=== PATIENT | female | born 1960 | race Caucasian/White ===

== ENCOUNTER 2018-03-06 07:08 | Emergency (ER) | payer BC ==
--- NOTE | 2018-03-06 07:20 | UC ---
Laceration HPI - HPI Summary HPI Summary: cut her right leg as she was shaving her leg this morning 2 hrs ago small cut to one of her varicose veins , cannot stop the bleeding, has been applying pressure for the past 1 hrs no pain , - History Of Current Complaint Stated Complaint: RIGHT LEG LACERATION Time Seen by Provider: 03/06/18 07:16 Hx Obtained From: Patient Laceration Location: Knee - back of the right leg just below the knee Mechanism Of Injury: Sharp Trauma - cut herself shaving Severity: Moderate Aggravating Factors: Nothing - Allergies/Home Medications Allergies/Adverse Reactions: Allergies Allergy/AdvReac Type Severity Reaction Status Date / Time gabapentin Allergy Itching Verified 03/06/18 07:16 Home Medications: Home Medications Lisinopril TAB* [Prinivil TAB*] 5 mg PO DAILY 03/06/18 [History Confirmed ] PMH/Surg Hx/FS Hx/Imm Hx - Additional Past Medical History Additional PMH: skin cancer - Surgical History Surgical History: Yes Surgery Procedure, Year, and Place: 2 Left knee Arthroscopies- + , Anterior Cervical Fusion-, Posterior Cervical Fusion w/plate c5-C6 , Lasik-, Cholecystectomy 12/24, Hysterectomy/Rt Oopharectomy12/27, Excision Sebaceous Cyst 07/29, Right knee Arthroscopy 04/29, Right TKA-total knee Arthroplasty 05/31, Right knee Femoral Revision (Fem Loosening) 04/01, Left Knee Arthroscopy 11/02 - Family History Known Family History: Negative: Blood Disorder - Social History Substance Use Type: None Review of Systems Constitutional: Negative Skin: Negative Eyes: Negative ENT: Negative Respiratory: Negative Is Patient Immunocompromised?: No All Other Systems Reviewed And Are Negative: Yes Physical Exam Triage Information Reviewed: Yes Appearance: Well-Appearing, No Pain Distress, Well-Nourished Vital Signs Reviewed: Yes Eye Exam: Normal Eyes: Positive: Conjunctiva Clear ENT: Positive: Normal ENT inspection, Hearing grossly normal, Pharynx normal Neck exam: Normal Neck: Positive: Supple, Nontender, No Lymphadenopathy Respiratory: Positive: Chest non-tender, Lungs clear, Normal breath sounds Cardiovascular: Positive: RRR, No Murmur, Pulses Normal Skin: Positive: Other - small laceration right lower leg , + bleeding, no need for repair , will place sugicel and pressure dressing Laceration Course/Dx - Differential Dx - Laceration/Wound Provider Diagnoses: laceration right lower leg Discharge - Sign-Out/Discharge Documenting (check all that apply): Discharge/Admit/Transfer - Discharge Plan Condition: Stable Disposition: HOME Patient Education Materials: Laceration Without Closure (ED) Referrals: Neelima Santos MD [Primary Care Provider] - If Needed Additional Instructions: Sugicel with pressure dressing was applied keep the pressure dressing until tomorrow morning - Billing Disposition and Condition Condition: STABLE Disposition: HOME
[2018-03-06 07:24] VITALS: BP 149/86
== END 2018-03-06 07:42 | disposition home or self-care (01) ==
LOC: UCCORT 07:08
DX: S81.811A Laceration without foreign body, right lower leg, initial encounter (principal); W26.8XXA Contact with other sharp object(s), not elsewhere classified, initial encounter; Y93.E8 Activity, other personal hygiene; Y92.9 Unspecified place or not applicable
CPT/HCPCS: 99211; G0463

== ENCOUNTER 2019-08-19 12:10 | Emergency (ER) | payer BC ==
[2019-08-19 14:04] VITALS: BP 126/70
--- NOTE | 2019-08-19 14:38 | ED ---
Skin Complaint - HPI Summary HPI Summary: 58 yr old with day three now of very intense burning itching on the entire trunk , neck and under her arms. No obvious rash, but much itching. 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 She has no fever or chills. She did have URI symptoms earlier in the month. No new contacts. No lip or tongue swelling, no SOB. - History of Current Complaint Chief Complaint: UCRash Time Seen by Provider: 08/19/19 14:17 Stated Complaint: SKIN CONCERN Pain Intensity: 0 - Allergy/Home Medications Allergies/Adverse Reactions: Allergies Allergy/AdvReac Type Severity Reaction Status Date / Time gabapentin Allergy Itching Verified 08/19/19 13:48 orange oil Allergy Difficulty Uncoded 08/19/19 13:49 Breathing Home Medications: Home Medications Aspirin 81 mg PO QAM 08/19/19 [History Confirmed 08/19/19] Flaxseed Oil [Linseed Oil Raw] 1 oil XX QPM 08/19/19 [History Confirmed 08/19/19 ] Du Quoin-3 Fatty Acids [Du Quoin-3] 1,200 mg PO QPM 08/19/19 [History Confirmed ] Ustekinumab [Stelara] 45 mg SQ SEE INSTRUCTIONS 08/19/19 [History Confirmed ] diphenhydrAMINE HCl [Benadryl Allergy] 50 mg PO ONCE PRN 08/19/19 [History Confirmed 08/19/19] PMH/Surg Hx/FS Hx/Imm Hx Endocrine/Hematology History: Denies: Hx Diabetes Cardiovascular History: Denies: Hx Hypertension, Hx Pacemaker/ICD Respiratory History: Denies: Hx Asthma Sensory History: Denies: Hx Hearing Aid Psychiatric History: Denies: Hx Panic Disorder - Cancer History Cancer Type, 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 Hx Chemotherapy: No Hx Radiation Therapy: No - Surgical History Surgery Procedure, Year, and Place: 2 Left knee Arthroscopies- + , Anterior Cervical Fusion-, Posterior Cervical Fusion w/plate c5-C6 , Lasik-, Cholecystectomy 12/24, Hysterectomy/Rt Oopharectomy12/27, Excision Sebaceous Cyst 07/29, Right knee Arthroscopy 04/29, Right TKA-total knee Arthroplasty 05/31, Right knee Femoral Revision (Fem Loosening) 6/10, Left Knee Arthroscopy 11/02, Left Total knee 11/2017 Infectious Disease History: Yes Infectious Disease History: Denies: Traveled Outside the [place] in Last 30 Days - Family History Known Family History: Positive: None Negative: Blood Disorder - Social History Alcohol Use: Occasionally Substance Use Type: Reports: None Smoking Status (MU): Heavy Every Day Tobacco Smoker Type: Cigarettes Amount Used/How Often: 1/2 PPD Review of Systems Constitutional: Negative Positive: Other - intense itching. All Other Systems Reviewed And Are Negative: Yes Physical Exam Triage Information Reviewed: Yes Vital Signs On Initial Exam: Initial Vitals Temp Pulse Resp BP Pulse Ox 98.4 F 88 18 126/70 98 08/19/19 13:55 08/19/19 13:55 08/19/19 13:55 08/19/19 13:55 08/19/19 13:55 Vital Signs Reviewed: Yes Appearance: Positive: Well-Appearing, No Pain Distress Skin: Positive: Warm, Other - itching and scratch boswell on the back, the abdomen area with small scabs forming on the back. No hives, no dermatitis changes. No cellulitis. Eyes: Positive: EOMI ENT: Positive: Normal ENT inspection Neck: Positive: Nontender Respiratory/Lung Sounds: Positive: Clear to Auscultation, Breath Sounds Present Cardiovascular: Positive: RRR, Pulses are Symmetrical in both Upper and Lower Extremities. Negative: Murmur Abdomen Description: Negative: Distended Musculoskeletal: Positive: Strength/ROM Intact Neurological: Positive: Sensory/Motor Intact, Alert, Oriented to Person Place, Time, CN Intact II-III, Normal Gait, Speech Normal Psychiatric: Positive: Normal Diagnostics - Vital Signs Vital Signs Temp Pulse Resp BP Pulse Ox 08/19/19 13:55 98.4 F 88 18 126/70 98 - Laboratory Lab Statement: Any lab studies that have been ordered have been reviewed, and results considered in the medical decision making process. Course/Dx - Course Course Of Treatment: 58 yr old with possible scabies. WIll Rx with Elimite. Benadryl for symptoms. FU with PMD. - Diagnoses Provider Diagnoses: Scabies Discharge ED - Sign-Out/Discharge Documenting (check all that apply): Patient Departure All imaging exams completed and their final reports reviewed: No Studies - Discharge Plan Condition: Good Disposition: HOME Prescriptions: Permethrin [Elimite] 60 gm TP ONCE #60 cream..g. Patient Education Materials: Scabies (ED) Referrals: Obinna Cadet MD [Primary Care Provider] - - Billing Disposition and Condition Condition: GOOD Disposition: Home
== END 2019-08-19 14:44 | disposition home or self-care (01) ==
LOC: UCCORT 12:10
DX: B86 Scabies (principal); F17.210 Nicotine dependence, cigarettes, uncomplicated; Z96.651 Presence of right artificial knee joint; Z79.82 Long term (current) use of aspirin; Z88.8 Allergy status to other drugs, medicaments and biological substances; Z91.09 Other allergy status, other than to drugs and biological substances
CPT/HCPCS: 99212; G0463